=== PATIENT | female | born 1985 | race Two or more races ===

== ENCOUNTER 2024-08-20 09:46 | Inpatient (IN) | payer MEDICAID ==
[~2024-08-20] VITALS: Ht 160 cm; Wt 103.0 kg
[2024-08-20 10:07] VITALS: PULSE 73; RESP 18; O2SAT 99
[2024-08-20 10:18] LABS: Basophils # (auto) 0 10 ^3/uL (0-0.2); Basophils % (auto) 0.7 % (0.0-2.0); Eosinophils # (auto) 0.1 10 ^3/uL (0-0.8); Hematocrit 39.2 % (36.0-46.0); Hemoglobin 13.2 g/dL (12.2-16.2); Lymphocytes # (auto) 1.6 10 ^3/uL (0.4-5.4); Lymphocytes % (auto) 30.6 % (10.0-50.0); Mean Corpuscular Hemoglobin 28.4 pg (28.0-32.0); Mean Corpuscular Hgb Conc. 33.8 g/dL (32.0-36.0); Mean Corpuscular Volume 84.1 fL (80.0-100.0); Monocytes # (auto) 0.2 10 ^3/uL (0-1.3); Monocytes % (auto) 4.2 % (0.0-12.0); Neutrophils # (auto) 3.4 10 ^3/uL (1.6-8.6); Neutrophils % (auto) 63.5 % (37.0-80.0); Nucleated Red Blood Cells % 0.1 %; Platelet Count (auto) 275 10^3/uL (140-450); Red Blood Cells 4.66 10^6/uL (4.0-5.20); Red Cell Distribution Width 15.1 % (11.8-14.3); White Blood Cell 5.4 10^3/uL (4.4-10.8)
--- NOTE | 2024-08-20 10:24 | ED.PDOC ---
Altered Mental Status HPI Comments 39y F who presents to the ED via EMS for chief complaint of syncope. Per EMS, pt was standing in kitchen drinking water when she suddenly felt light headed and had unwitnessed syncopal episode. Pt states she does not remember losing consciousness but states she has been having pain to the back of the head and called EMS. EMS states pt has noted laceration to the posterior head and was complaining of headache and brought to the ED. Pt was alert and oriented upon EMS arrival with vitals in normal range and brought to the ED. Pt in the ED, states she is having neck pain, abdominal pain and headache. Pt is alert and oriented x4 and able to answer all questions. Pt denies any other symptoms at t his time. Chief Complaint: Syncope Time Seen by MD: 10:21 Reviewed Notes: Medications, Allergies Information Source: Patient, Emergency Med Personnel Mode of Arrival: EMS Brought in by: EMS Past Medical History PAST MEDICAL HISTORY: HTN Surgical History: Cholecystectomy PUBLICATIONS INSPECTOR History: Denies all PUBLICATIONS INSPECTOR Hx Family History Family History: Reviewed,noncontributory to illness Social History Smoker: Non-Smoker Alcohol: Denies ETOH Use Drugs: Denies Drug Use Lives In: Home Constitutional: denies: chills, diaphoresis, fatigue, fever, malaise, sweats, weakness, others EENTM: denies: blurred vision, double vision, ear bleeding, ear discharge, ear drainage, ear pain, ear ringing, eye pain, eye redness, hearing loss, mouth pain, mouth swelling, nasal discharge, nose bleeding, nose congestion, nose pain, photophobia, tearing, throat pain, throat swelling, voice changes, others Respiratory: denies: cough, hemoptysis, orthopnea, SOB at rest, shortness of breath, SOB with excertion, stridor, wheezing, others Cardiovascular: denies: chest pain, dizzy spells, diaphoresis, Dyspnea on exertion, edema, irregular heart beat, left arm pain, lightheadedness, palpitations, PND, syncope, others Gastrointestinal: reports: abdominal pain; denies: abdomen distended, blood streaked bowels, constipated, diarrhea, dysphagia, difficulty swallowing, hematemesis, melena, nausea, poor appetite, poor fluid intake, rectal bleeding, rectal pain, vomiting, others Genitourinary: denies: abnormal vagina bleeding, burning, dyspareunia, dysuria, flank pain, frequency, hematuria, incontinence, pain, , vagina discharge, urgency, others Neurological: reports: headache; denies: dizziness, fainting, left sided numbness, left sided weakness, numbness, paresthesia, pre-existing deficit, right sided numbness, right sided weakness, seizure, speech problems, tingling, tremors, weakness, others Musculoskeletal: reports: neck pain; denies: back pain, gout, joint pain, joint swelling, muscle pain, muscle stiffness, others Integumetry: denies: bruises, change in color, change in hair/nails, dryness, laceration, lesions, lumps, rash, wounds, others Allergic/Immunocompromised: denies: Difficulty Healing, Frequent Infections, Hives, Itching, others Hematologic/Lymphatic: denies: anemia, blood clots, easy bleeding, easy bruising, swollen glands, others Endocrine: denies: excessive hunger, excessive sweating, excessive thirst, excessive urination, flushing, intolerance to cold, intolerance to heat, unexplained weight gain, unexplained weight loss, others Psychiatric: denies: anxiety, bipolar disorder, depression, hopeless, panic disorder, schizophrenia, sleepless, suicidal, others All Other Systems: Reviewed and Negative Physical Exam General Appearance: Moderate Distress HEENT: Normal ENT Inspection, Pharynx Normal, TMs Normal Neck: Full Range of Motion, Non-Tender, Normal, Normal Inspection Respiratory: Chest Non-Tender, Lungs Clear, No Accessory Muscle Use, No Respiratory Distress, Normal Breath Sounds Cardiovascular: No Edema, No JVD, No Murmur, No Gallop, Normal Peripheral Pulses, Regular Rate/Rhythm Breast Exam: Deferred Gastrointestinal: No Organomegaly, Non Tender, No Pulsatile Mass, Normal Bowel Sounds, Soft Genitalia: Deferred Pelvic: Deferred Rectal: Deferred Extremities: No calf tenderness, Normal capillary refill, Normal inspection, Normal range of motion, Non-tender, No pedal edema Musculoskeletal : Apperance: Normal Neurologic: Alert, tool drawing checker II-XII nml as Tested, No Motor Deficits, Normal Affect, Normal Mood, No Sensory Deficits Cerebellar Function: Normal Reflexes: Normal Skin: Lacerations (Scalp) Peripheral Pulses: 3+ Radial (R), 3+ Radial (L) Lymphatic: No Adenopathy Was a procedure done? Was a procedure done?: No Differential Diagnosis (ALOC) Differential Diagnosis: Dehydration, Hypoglycemia, Encephalopathy, Sepsis, Hypoxemia, Closed Head Injury, SAH X-Ray, Labs, Meds, VS Vital Signs Date Time Temp Pulse Resp B/P (MAP) Pulse Ox O2 Delivery O2 Flow Rate FiO2 08/20/24 11:22 70 18 126/80 (95) 66 08/20/24 10:07 98.1 73 18 130/75 (93) 99 98.1 08/20/24 10:07 73 18 99 Room Air* 0 21 08/20/24 09:56 70 08/20/24 09:54 98.4 81 18 125/79 (94) 100 Lab Test 08/20/24 10:40 08/20/24 10:06 Range/Units Urine Color Pending Urine Clarity Pending Urine pH Pending Urine Specific [place] Pending Urine Protein Pending Urine Ketones Pending Urine Blood Pending Urine Nitrite Pending Urine Bilirubin Pending Urine Urobilinogen Pending Urine Leukocyte Esterase Pending Urine RBC Pending Urine WBC Pending Urine Squamous Epithelial Cells Pending Urine Bacteria Pending Urine Glucose Pending White Blood Count 5.4 4.4-10.8 10^3/uL Red Blood Count 4.66 4.0-5.20 10^6/uL Hemoglobin 13.2 12.2-16.2 g/dL Hematocrit 39.2 36.0-46.0 % Mean Corpuscular Volume 84.1 80.0-100.0 fL Mean Corpuscular Hemoglobin 28.4 28.0-32.0 pg Mean Corpuscular Hemoglobin Concent 33.8 32.0-36.0 g/dL Red Cell Distribution Width 15.1 H 11.8-14.3 % Platelet Count 275 140-450 10^3/uL Mean Platelet Volume 7.7 6.9-10.8 fL Neutrophils (%) (Auto) 63.5 37.0-80.0 % Lymphocytes (%) (Auto) 30.6 10.0-50.0 % Monocytes (%) (Auto) 4.2 0.0-12.0 % Eosinophils (%) (Auto) 1.0 0.0-7.0 % Basophils (%) (Auto) 0.7 0.0-2.0 % Neutrophils # (Auto) 3.4 1.6-8.6 10 ^3/uL Lymphocytes # (Auto) 1.6 0.4-5.4 10 ^3/uL Monocytes # (Auto) 0.2 0-1.3 10 ^3/uL Eosinophils # (Auto) 0.1 0-0.8 10 ^3/uL Basophils # (Auto) 0 0-0.2 10 ^3/uL Nucleated Red Blood Cells 0.1 % Sodium Level 143 136-145 mmol/L Potassium Level 3.7 3.5-5.1 mmol/L Chloride Level 112 H 98-107 mmol/L Carbon Dioxide Level 25 20-31 mmol/L Anion Gap 6 5-15 Blood Urea Nitrogen 6 L 9-23 mg/dL Creatinine 0.77 0.550-1.02 mg/dL Glomerular Filtration Rate Calc 99 >90 mL/min BUN/Creatinine Ratio 7.8 L 10.0-20.0 Serum Glucose 105 74-106 mg/dL Calcium Level 9.7 8.7-10.4 mg/dL Troponin I High Sensitivity < 3 L </=34 ng/L PROCEDURE(s): HWOCT - HEAD WITHOUT CONTRAST IMPRESSION: 1. No acute intracranial process. Patient alert. Status post fall. Has a laceration of the scalp. Vitals stable. Syncope. Unknown how the incident happened. Was found by family. She does not remember the event. WBC within normal limits. Hemoglobin within normal limits. CT of the head reviewed does not show any acute changes pain Sutured. Cardiac marker within normal limits. Reviewed her previous history. Explained to the patient treatment plan. Continue cardiac monitoring. Time of 1ST Reevaluation: 11:00 Reevaluation 1ST: Unchanged Patient Education/Counseling: Diagnosis, Treatment Family Education/Counseling: No Family Present Departure 1 Departure Time of Disposition: 10:55 Impression: Primary Impression: Head injury Qualified Codes: S09.90XA - Unspecified injury of head, initial encounter Additional Impression: Laceration Disposition: ADMITTED INPATIENT Admit to: Med Surg Condition: Guarded Critical Care Note Critical Care Time?: Yes (45 min-critical care time only) Stability Stability form required: No Heart Score Heart Score: Heart Score Response (Comments) Value History N/A 0 EKG N/A 0 Age N/A 0 Risk Factors N/A 0 Troponin N/A 0 Total 0 I personally scribed for ISAAK MURRY MD ([email or web address]) on 08/20/24 at 10:24. Electronically submitted by Jared Albert ([email or web address]). I personally scribed for ISAAK MURRY MD ([email or web address]) on 08/20/24 at 12:21. Electronically submitted by Jared Albert ([email or web address]). ISAAK MURRY MD Aug 20, 2024 10:24
[2024-08-20 10:30] LABS: Chloride 112 mmol/L (98-107); Potassium 3.7 mmol/L (3.5-5.1); Sodium 143 mmol/L (136-145)
[2024-08-20 10:31] LABS: Anion Gap 6 (5-15); Calcium 9.7 mg/dL (8.7-10.4); Carbon Dioxide 25 mmol/L (20-31)
[2024-08-20 10:36] LABS: BUN/Creatinine Ratio 7.8 (10.0-20.0); Blood Urea Nitrogen 6 mg/dL (9-23); Glucose 105 mg/dL (74-106)
--- NOTE | 2024-08-20 10:51 | DVH ---
EXAM: CT HEAD WITHOUT CONTRAST HISTORY: syncope COMPARISON: None TECHNIQUE: Axial images of the head were obtained and reformatted in coronal and sagittal planes. All CT scans at this medical facility are performed using dose modulation techniques as appropriate t o a performed exam including the following: Automated exposure control was utilized; adjustment of th e MA and/or KV according to patient size; and use of iterative reconstruction technique. CT Dose: CTDI volume is 54.52 mGy. Dose-length product is 874.08 mGy*cm FINDINGS: There is no evidence of acute intracranial hemorrhage, mass, mass effect midline shift. There is no h ydrocephalus or extra-axial fluid collection. Ervin-white matter differentiation is maintained.. The visualized paranasal sinuses and mastoid air cells are clear. The calvarium is intact. IMPRESSION: 1. No acute intracranial process. HS:Y
[2024-08-20 12:25] LABS: Urine Bacteria FEW /hpf (None Seen); Urine Blood Negative /uL (Negative); Urine Clarity Clear (Clear); Urine Color Colorless (Yellow); Urine Protein, UAD Negative (Negative); Urine Specific Gravity 1.003 (1.001-1.035); Urine Urobilinogen Normal (Negative); Urine WBC 1 /hpf (0 - 5); Urine pH 6.5 (5.0-9.0)
[2024-08-20] MEDS ORDERED: ONDANSETRON HCL 4 MG/2 ML VIAL IV PRN (15:15)
[2024-08-20] MEDS ORDERED: DESM0.1T13 PO (15:23)
[2024-08-20] MEDS ORDERED: NITR100C6 PO (15:23)
[2024-08-20] MEDS ORDERED: ENAL1TAB47 PO (15:27)
--- NOTE | 2024-08-20 15:41 | DVHHP2 ---
History of Present Illness Reason for Visit: Syncope History of Present Illness 39-year-old female presented to the ED via EMS with chief complaint of syncope. Per EMS patient was standing in the kitchen drinking water when she felt lightheaded and had unwitnessed syncopal episode. Patient states she does not remember losing consciousness. EMS stated patient noted laceration to the posterior head and was complaining of headache and brought to the ED. patient was alert and oriented upon EMS arrival and vitals were within normal limits. When patient was in the ED she complaint of neck pain, abdominal pain and headache. Patient does note she was recently diagnosed with a UTI and did not start taking her medication yet because it was not available at the pharmacy. Patient is alert and oriented x4 and able to answer all questions, patient has no deficits. Patient denies chest pain, dizziness, diaphoresis, shortness of breath, no nausea, vomiting, fever, or chills endorsed by the patient. Patient was admitted for further evaluation medical management. Past Medical History Hypertension, diabetes insipidus Past Surgical History Cholecystectomy Family History Reviewed noncontributory to the management of this case Smoke: No ALCOHOL: none Drugs: None Lives: with Family Review of Systems Constitutional: No: Fever, Chills, Sweats, Weakness, Malaise, Other Eyes: No: Pain, Vision change, Conjunctivae inflammation, Eyelid inflammation, Other, Redness ENT: No: Ear pain, Ear discharge, Nose pain, Nose discharge, Nose congestion, Mouth pain, Mouth swelling, Throat pain, Throat swelling, Other Respiratory: No: Cough, Dry, Shortness of breath, SOB with excertion, Wheezing, Hemoptysis, Pleuritic Pain, Sputum, Wheezing, Other Cardiovascular: No: Chest Pain, Palpitations, Orthopnea, Paroxysmal Noc. Dyspnea, Edema, Lt Headedness, Other Gastrointestinal: No: Nausea, Vomiting, Abdominal Pain, Diarrhea, Constipation, Melena, Hematochezia, Other Genitourinary: Dysuria, Frequency; No Incontinence, No Hematuria, No Retention, No Other Musculoskeletal: neck pain; No: other, shoulder pain, arm pain, back pain, hand pain, leg pain, foot pain Skin: Other (Laceration to posterior head); No: Rash, Lesions, Jaundice, Bruising Neurological: No: Weakness, Numbness, Incoordination, Change in speech, Confusion, Seizures, Other Allergies: Coded Allergies: NO KNOWN ALLERGIES (Unverified , 08/20/24) Verified Medications Current Medications Medications Dose Ordered Sig/Garfield Route Start Time Stop Time Status Last Admin Dose Admin Acetaminophen 650 mg Q6HP PRN PO 08/20/24 15:15 UNV Acetaminophen/ Hydrocodone Bitart 1 tab Q6HP PRN PO 08/20/24 15:15 UNV Ondansetron HCl 4 mg Q4HP PRN IV 08/20/24 15:15 UNV Nitrofurantoin Macrocrystals 100 mg Q12HR PO 08/20/24 22:00 UNV Patient Own Medication 0.1 mg QID PO 08/20/24 18:00 UNV Enalapril Maleate 10 mg DAILY PO 08/21/24 10:00 UNV Exam Vital Signs Vital Signs Date Time Temp Pulse Resp B/P (MAP) Pulse Ox O2 Delivery O2 Flow Rate FiO2 08/20/24 14:20 88 18 128/85 (99) 98 08/20/24 10:07 98.1 98.1 08/20/24 10:07 Room Air* 0 21 General Appearance: Alert, Oriented X3, Cooperative, No acute distress HEENT: Atraumatic, PERRLA, EOMI, Mucous membr. moist/pink Respiratory: Clear to auscultation, Normal air movement Cardiovascular: Regular rate, Normal S1, Normal S2, No murmurs Abdominal: Normal bowel sounds, Soft, No tenderness, No hepatospenomegaly, No masses Extremities: No clubbing, No cyanosis, No edema, Normal pulses, No tenderness/swelling Skin: No rashes, No breakdown, No significant lesion Neuro: Normal gait, Normal speech, Strength at 5/5 X4 ext, Normal tone, Sensation intact, Cranial nerves 3-12 NL, Reflexes 2+ Psych/Mental Status: Mental status NL, Mood NL Labs/Xrays Labs, imaging and ED notes reviewed Labs Test 08/20/24 10:40 08/20/24 10:06 Range/Units Urine Color Colorless Yellow Urine Clarity Clear Clear Urine pH 6.5 5.0-9.0 Urine Specific [place] 1.003 1.001-1.035 Urine Protein Negative Negative Urine Ketones Negative Negative Urine Blood Negative Negative /uL Urine Nitrite Negative Negative Urine Bilirubin Negative Negative Urine Urobilinogen Normal Negative mg/dL Urine Leukocyte Esterase Negative Negative /uL Urine RBC 1 0 - 4 /hpf Urine WBC 1 0 - 5 /hpf Urine Squamous Epithelial Cells Few <5 /hpf Urine Bacteria Few H None Seen /hpf Urine Glucose Normal Normal mg/dL White Blood Count 5.4 4.4-10.8 10^3/uL Red Blood Count 4.66 4.0-5.20 10^6/uL Hemoglobin 13.2 12.2-16.2 g/dL Hematocrit 39.2 36.0-46.0 % Mean Corpuscular Volume 84.1 80.0-100.0 fL Mean Corpuscular Hemoglobin 28.4 28.0-32.0 pg Mean Corpuscular Hemoglobin Concent 33.8 32.0-36.0 g/dL Red Cell Distribution Width 15.1 H 11.8-14.3 % Platelet Count 275 140-450 10^3/uL Mean Platelet Volume 7.7 6.9-10.8 fL Neutrophils (%) (Auto) 63.5 37.0-80.0 % Lymphocytes (%) (Auto) 30.6 10.0-50.0 % Monocytes (%) (Auto) 4.2 0.0-12.0 % Eosinophils (%) (Auto) 1.0 0.0-7.0 % Basophils (%) (Auto) 0.7 0.0-2.0 % Neutrophils # (Auto) 3.4 1.6-8.6 10 ^3/uL Lymphocytes # (Auto) 1.6 0.4-5.4 10 ^3/uL Monocytes # (Auto) 0.2 0-1.3 10 ^3/uL Eosinophils # (Auto) 0.1 0-0.8 10 ^3/uL Basophils # (Auto) 0 0-0.2 10 ^3/uL Nucleated Red Blood Cells 0.1 % Sodium Level 143 136-145 mmol/L Potassium Level 3.7 3.5-5.1 mmol/L Chloride Level 112 H 98-107 mmol/L Carbon Dioxide Level 25 20-31 mmol/L Anion Gap 6 5-15 Blood Urea Nitrogen 6 L 9-23 mg/dL Creatinine 0.77 0.550-1.02 mg/dL Glomerular Filtration Rate Calc 99 >90 mL/min BUN/Creatinine Ratio 7.8 L 10.0-20.0 Serum Glucose 105 74-106 mg/dL Calcium Level 9.7 8.7-10.4 mg/dL Troponin I High Sensitivity < 3 L </=34 ng/L Assessment/Plan Assessment/Plan Syncope, possible medication side effect secondary to desmopressin and dehydration? Admit to medical/surgical Fall precautions Encourage hydration Chronic hypertension Continue home medication UTI Continue home antibiotics Head laceration CT head no acute findings Keep site clean and dry FEN/PPX GI and VTE prophylaxis not indicated Cardiac diet Encourage fluid intake Plan discussed with: Patient My Orders Orders - JANETH MANRIQUEZ Procedure Category Date Status Time Admit ADMIT 08/20/24 Transmitted 15:15 Code Status CODE 08/20/24 Transmitted 15:15 Vital Signs [facility] 08/20/24 In Process 15:15 Review Orders With [facility] 08/20/24 In Process Adm. 15:15 Bedside Commode [facility] 08/20/24 In Process 15:15 Acetaminophen Tablet [facility] 08/20/24 Logged (Tylenol Tablet) 15:15 Notify Md Of Changes [facility] 08/20/24 In Process From Base 15:15 Advance Directive [facility] 08/20/24 In Process 15:15 Patient Condition ORDERS 08/20/24 Transmitted 15:15 Allergies [facility] 08/20/24 In Process 15:15 Hydrocodone-Acet [facility] 08/20/24 Logged 5/325mg Tab ([place] 15:15 Ondansetron Hcl [facility] 08/20/24 Logged (Zofran) 15:15 Cardiac DIET 08/20/24 Transmitted Diet-2gna,Lofat,Lochol [facility] 08/20/24 In Process Clarification: 15:21 Nitrofurantoin [facility] 08/20/24 Logged Capsule (Macrobid) 22:00 (Nf) Desmopressin [facility] 08/20/24 Logged Acetate 18:00 Enalapril Tablet [facility] 08/21/24 Logged (Vasotec Tablet) 10:00 Date of Service: Aug 20, 2024 Billing Provider: JANETH MANRIQUEZ Common Visit Codes: [id number] INP/OBS CARE (HIGH) JANETH MANRIQUEZ Aug 20, 2024 15:41
[2024-08-20] MEDS: DESMOPRESSIN ACETATE 0.1 MG PO SCH (18:00)
[2024-08-20 21:00] VITALS: BP 128/82; PULSE 73; RESP 19; TEMP 98.5
[2024-08-20 22:44] VITALS: PULSE 65; RESP 18
[2024-08-20 22:45] VITALS: BP 129/77; PULSE 65; RESP 18; TEMP 98.2; O2SAT 99
[2024-08-20 23:01] VITALS: BP 129/77; PULSE 65; RESP 18; TEMP 98.2; O2SAT 99
[2024-08-20] MEDS: NITROFURANTOIN 100 mg CAP PO SCH (23:31)
[2024-08-20] MEDS: HYDROcodone-ACET 5/325MG TAB PO PRN (23:39)
[2024-08-20] MEDS ORDERED: TRAZ-228 PO (23:40)
[2024-08-20] MEDS ORDERED: SERT25TA28 PO (23:40)
[2024-08-21] VITALS (8 sets, daily range): BP systolic 114–139; BP diastolic 65–84; PULSE 60–78; RESP 17–20; TEMP 98–98.6; O2SAT 96–97
[2024-08-21] MEDS: ENALAPRIL MALEATE 10 MG TAB PO SCH (08:07)
--- NOTE | 2024-08-21 09:52 | DVHPN2 ---
Subjective No recurrence of the syncope; patient's daughter translated from [place] Reviewed: Care Plan, H&P, Labs, Medications, Previous Orders, Radiology Changes from previous H/P or p: Changes Objective Vitals Vital Signs Date Time Temp Pulse Resp B/P (MAP) Pulse Ox O2 Delivery O2 Flow Rate FiO2 08/21/24 08:07 139/71 08/21/24 05:00 98.4 62 18 97 98.4 08/20/24 22:44 Room Air* 0 21 Intake/Output Intake and Output 08/21/24 07:00 Intake Total 240 ml Balance 240 ml Intake Oral 240 ml # Voids 3 General Appearance: Alert, Oriented X3, Cooperative, No acute distress HEENT: Other (Scalp hematoma with abrasion but no active bleeding) Lungs: Clear to auscultation, Normal air movement Cardiovascular: Regular rate, Normal S1, Normal S2, No murmurs Abdomen: Normal bowel sounds, Soft, No tenderness Extremities: No edema Neuro: Normal gait, Normal speech, Strength at 5/5 X4 ext, Normal tone, S ensation intact, Cranial nerves 3-12 NL, Reflexes 2+ Psych/Mental Status: Mental status NL, Mood NL Medications Current Medications Medications Dose Ordered Sig/[place] Route Start Time Stop Time Status Last Admin Dose Admin Acetaminophen 650 mg Q6HP PRN PO 08/20/24 15:15 Acetaminophen/ Hydrocodone Bitart 1 tab Q6HP PRN PO 08/20/24 15:15 08/20/24 23:39 1 TAB Ondansetron HCl 4 mg Q4HP PRN IV 08/20/24 15:15 Nitrofurantoin Macrocrystals 100 mg Q12HR PO 08/20/24 22:00 08/21/24 08:07 100 MG Patient Own Medication 0.1 mg QID PO 08/20/24 18:00 Enalapril Maleate 10 mg DAILY PO 08/21/24 10:00 08/21/24 08:07 10 MG Laboratory Results Laboratory Tests 08/20/24 10:06 Chemistry Test 08/20/24 10:06 Calcium Level 9.7 mg/dL (8.7-10.4) Urinalysis Test 08/20/24 10:40 Urine Color Colorless (Yellow) Urine Clarity Clear (Clear) Urine pH 6.5 (5.0-9.0) Urine Specific [place] 1.003 (1.001-1.035) Urine Protein Negative (Negative) Urine Ketones Negative (Negative) Urine Blood Negative /uL (Negative) Urine Nitrite Negative (Negative) Urine Bilirubin Negative (Negative) Urine Urobilinogen Normal mg/dL (Negative) Urine Leukocyte Esterase Negative /uL (Negative) Urine RBC 1 /hpf (0 - 4) Urine WBC 1 /hpf (0 - 5) Urine Squamous Epithelial Cells Few /hpf (<5) Urine Bacteria Few /hpf (None Seen) H Urine Glucose Normal mg/dL (Normal) Labs and/or images reviewed: Labs reviewed by me, Image(s) reviewed by me Assessment/Plan Assessment/Plan A 39-year-old female patient; with past medical history of diabetes insipidus, pituitary lesion/tumor, and essential hypertension; who presented to the emergency department after syncope and collapse that caused a fall and a head injury with scalp hematoma/abrasion. #Syncope and collapse in the setting of pituitary lesion/tumor #Fall due to syncope and collapse #Head injury with scalp hematoma/abrasion Reviewed head CT; ordered brain MRI with and without contrast for pituitary gland evaluation Ordered echocardiogram then reviewed the results: Mildly elevated right ventricular systolic pressure 38 mm of mercury is the only abnormality mentioned; ordered D-dimer Ordered duplex carotid ultrasound Reordered orthostatic vital signs Telemetry Fall precautions Wound care is following Continue monitoring #Diabetes insipidus Continue home desmopressin Continue monitoring electrolytes and renal function ##Essential hypertension Continue home enalapril Continue monitoring blood pressure and adjust antihypertensive medication accordingly #Suspected UTI Continue nitrofurantoin #Morbid obesity Counseled the patient importance of adopting healthy lifestyle with diet and exercise in order to lose weight Goals of care discussed for 20 minutes; full code Late Entry This medical document was created using an electronic medical record system with computerized dictation system. Although this document has been carefully reviewed, there might still be some phonetic and typographical errors. These areas are purely typographical due to imperfections of the software programs, and do not reflect any compromise in the patient's medical care. Plan discussed with: Patient, Daughter, Other Date of Service: Aug 21, 2024 Billing Provider: JAKI HORNER MD Common Visit Codes: 23513-[id number] INP/OBS CARE(HIGH) Secondary Visit Codes: 71996-[id number] CARE PLAN 30 MINUTES (20 minutes) JAKI HORNER MD Aug 21, 2024 09:52
[2024-08-21] MEDS: GADOTERATE MEG 10 MMOL/20ml INJ (0.5MMOL/ml) IV ONE (15:18)
--- NOTE | 2024-08-21 15:43 | DVHSR ---
APPROVED REPORT EXAM: Two-dimensional and M-mode echocardiogram with Doppler and color Doppler. Blood Pressure: 139/84 mmHg INDICATION Syncope RISK FACTORS Height: 63, Weight: 235 DIMENSIONS LVDd4.8 (3.8-5.7cm)LA (2D)4.0 (1.9-4.0cm)Aortic Root3.5 (2.0-3.7cm) LVDs3.1 (2.5-4.0cm)LA (MM) (1.9-4.0cm)Aortic Cusp Exc1.7 (1.5-2.0cm) EF (%) 65.0 (55-70%)Rt. Atrium3.6 (1.9-4.0cm)Asc. Aorta cm IVSd1.0 (0.7-1.1cm)RV (D) (1.8-2.4cm) PWd1.0 (0.7-1.1cm) Mitral Valve MitralMitral Stenosis E wave0.79m/sMV Mean GR.mmHg A wave0.70m/sMV Peak GR.mmHg E/A ratio1.12D MVAcm2 DECEL [id number] 1/2 [id number] IVRTmsDop MVA2.36cm2 Aortic Valve Aortic ValveAortic Stenosis V11.16m/Joe Mean GR.5mmHg V21.58m/Joe Peak GR.10mmHg LVOT Diameter2.0 (1.8-2.4cm)Doppler AVA2.31cm2 Pulmonic Valve V20.88m/s Tricuspid Valve TR Velocity2.33m/s [id number] Conclusion Normal left ventricular size and dimension. Normal left ventricular systolic function. With estimat ed ejection fraction 55%. Normal diastolic function . Normal right ventricular size and dimension. Normal right ventricular systolic function. Mildly melvin vated right ventricular systolic [id number] mm of mercury Normal biatrial size and dimension. Normal aortic valve structure and function. Normal mitral valve structure and function. Normal tricuspid valve structure and function. The pulmonary valve is grossly normal. No pericardial effusion.
[2024-08-21] MEDS ORDERED: [UNRECOGNIZED DRUG - CODE] PO (16:12)
[2024-08-21] MEDS ORDERED: HYDR-4924 PO (16:12)
[2024-08-21] MEDS ORDERED: CITA-77 PO (16:12)
[2024-08-21] MEDS ORDERED: ERGO1CAP23 PO (16:12)
[2024-08-21] MEDS: ACETAMINOPHEN 325 MG TAB PO PRN (16:19)
--- NOTE | 2024-08-21 16:24 | DVH ---
MRI BRAIN WITH CONTRAST CLINICAL HISTORY: Syncope with diabetes insipidus; pituitary tumor. Thank You TECHNIQUE: Multiplanar multisequence images of the brain and pituitary gland were obtained prior to and followin g intravenous administration of contrast. 10/10 cc of gadavist contrast from a prefilled syringe was administered intravenously. Comparison: CT HEAD WITHOUT CONTRAST on DOS: 08/20/24 FINDINGS: The pituitary gland is normal in size and demonstrates appropriate signal. There is no discrete pitui tary lesion. There is no other sellar or suprasellar lesion. The pituitary infundibulum is midline. The optic chiasm appears unremarkable without extrinsic mass effect. There is no restricted diffusion. There are few nonspecific scattered punctate hyperintense T2/FLAIR foci in the bilateral frontal lobe white matter. There is no pathologic enhancement. There is no evid ence of hemorrhage, mass, mass effect or midline shift. There is no hydrocephalus or extra-axial flui d collection. The visualized intracranial vasculature demonstrates appropriate flow-voids. The midlin e structures appear unremarkable. The craniocervical junction is within normal limits. The calvarium demonstrates normal marrow signal. The paranasal sinuses and mastoid air cells are clear. IMPRESSION: 1. Unremarkable MR appearance of the pituitary gland. 2. Few nonspecific scattered punctate hyperintense T2 foci in the bilateral frontal lobe white matter . These can be seen with migraine vasculopathy. Clinical correlation is recommended. HS:Y
--- NOTE | 2024-08-21 18:36 | ECG ---
[facility] Test Date: 2024-08-20 Test Time: 09:56:34 Pat Name: LAUREN FOLEY Department: ED Room: 0289 Gender: F Senior Marketing Manager: FELICIA : 1985 Requested By: ISAAK MURRY Order Number: [id number] Reading MD: Measurements Intervals [place] Rate: 70 P: 24 ME: 161 QRS: 41 QRSD: 97 T: 29 QT: 396 QTc: 428 Interpretive Statements Sinus rhythm Please click the below link to view image of tracing.
[2024-08-22] VITALS (9 sets, daily range): BP systolic 112–126; BP diastolic 69–76; PULSE 61–85; RESP 16–20; TEMP 98.2–98.9; O2SAT 96–100
[2024-08-22 07:13] LABS: Basophils # (auto) 0 10 ^3/uL (0-0.2); Basophils % (auto) 0.7 % (0.0-2.0); Eosinophils # (auto) 0.1 10 ^3/uL (0-0.8); Eosinophils % (auto) 1.2 % (0.0-7.0); Hematocrit 37.9 % (36.0-46.0); Hemoglobin 12.9 g/dL (12.2-16.2); Lymphocytes # (auto) 2.1 10 ^3/uL (0.4-5.4); Mean Corpuscular Hemoglobin 29.1 pg (28.0-32.0); Mean Corpuscular Hgb Conc. 34.1 g/dL (32.0-36.0); Mean Corpuscular Volume 85.4 fL (80.0-100.0); Monocytes # (auto) 0.4 10 ^3/uL (0-1.3); Monocytes % (auto) 5.6 % (0.0-12.0); Neutrophils # (auto) 3.8 10 ^3/uL (1.6-8.6); Neutrophils % (auto) 59.5 % (37.0-80.0); Nucleated Red Blood Cells % 0.2 %; Platelet Count (auto) 264 10^3/uL (140-450); Red Blood Cells 4.44 10^6/uL (4.0-5.20); White Blood Cell 6.3 10^3/uL (4.4-10.8)
[2024-08-22 07:26] LABS: Alanine Aminotransferase 18 U/L (7-40); Alkaline Phosphatase 61 U/L (46-116); Anion Gap 7 (5-15); Aspartate Aminotransferase < 8 U/L (13-40); BUN/Creatinine Ratio 10.7 (10.0-20.0); Blood Urea Nitrogen 8 mg/dL (9-23); Calcium 9.6 mg/dL (8.7-10.4); Carbon Dioxide 26 mmol/L (20-31); Chloride 110 mmol/L (98-107); Glucose 94 mg/dL (74-106); Potassium 3.9 mmol/L (3.5-5.1); Sodium 143 mmol/L (136-145)
[2024-08-22 07:27] LABS: Albumin 4.1 g/dL (3.2-4.8); Bilirubin, Total 1.1 mg/dL (0.2-1.0); Total Protein 6.7 g/dL (5.7-8.2)
--- NOTE | 2024-08-22 10:52 | DVHPN2 ---
Reviewed: Care Plan, H&P, Labs, Medications, Previous Orders, Radiology Changes from previous H/P or p: No Changes Objective Vitals Vital Signs Date Time Temp Pulse Resp B/P (MAP) Pulse Ox O2 Delivery O2 Flow Rate FiO2 08/22/24 09:17 117/74 08/22/24 08:51 98.2 78 18 99 98.2 08/22/24 08:00 Room Air* 0 21 Intake/Output Intake and Output 08/22/24 07:00 Intake Total 1340 ml Output Total 650 ml Balance 690 ml Intake Oral 1340 ml Output Urine Total 650 ml # Voids 2 # Bowel Movements 1 General Appearance: Alert, Oriented X3, Cooperative, No acute distress HEENT: Other (Scalp hematoma with abrasion but no active bleeding) Lungs: Clear to auscultation, Normal air movement Cardiovascular: Regular rate, Normal S1, Normal S2, No murmurs Abdomen: Normal bowel sounds, Soft, No tenderness Extremities: No edema Neuro: Normal gait, Normal speech, Strength at 5/5 X4 ext, Normal tone, S ensation intact, Cranial nerves 3-12 NL, Reflexes 2+ Psych/Mental Status: Mental status NL, Mood NL Medications Current Medications Medications Dose Ordered Sig/[place] Route Start Time Stop Time Status Last Admin Dose Admin Acetaminophen 650 mg Q6HP PRN PO 08/20/24 15:15 08/21/24 16:19 650 MG Acetaminophen/ Hydrocodone Bitart 1 tab Q6HP PRN PO 08/20/24 15:15 08/22/24 09:16 1 TAB Ondansetron HCl 4 mg Q4HP PRN IV 08/20/24 15:15 Nitrofurantoin Macrocrystals 100 mg Q12HR PO 08/20/24 22:00 08/22/24 09:16 100 MG Patient Own Medication 0.1 mg QID PO 08/20/24 18:00 08/22/24 05:55 0.1 MG Enalapril Maleate 10 mg DAILY PO 08/21/24 10:00 08/22/24 09:17 10 MG Laboratory Results Laboratory Tests 08/22/24 05:49 Chemistry Test 08/22/24 05:49 Albumin 4.1 g/dL (3.2-4.8) Calcium Level 9.6 mg/dL (8.7-10.4) Total Protein 6.7 g/dL (5.7-8.2) Coagulation Test 08/22/24 08:40 D-Dimer, Quantitative 0.47 mg/L FEU (0.0-0.49) LFT Test 08/22/24 05:49 Alanine Aminotransferase (ALT) 18 U/L (7-40) Alkaline Phosphatase 61 U/L (46-116) Aspartate Amino Transferase (AST) < 8 U/L (13-40) L Total Bilirubin 1.1 mg/dL (0.2-1.0) H Urinalysis Test 08/20/24 10:40 Urine Color Colorless (Yellow) Urine Clarity Clear (Clear) Urine pH 6.5 (5.0-9.0) Urine Specific [place] 1.003 (1.001-1.035) Urine Protein Negative (Negative) Urine Ketones Negative (Negative) Urine Blood Negative /uL (Negative) Urine Nitrite Negative (Negative) Urine Bilirubin Negative (Negative) Urine Urobilinogen Normal mg/dL (Negative) Urine Leukocyte Esterase Negative /uL (Negative) Urine RBC 1 /hpf (0 - 4) Urine WBC 1 /hpf (0 - 5) Urine Squamous Epithelial Cells Few /hpf (<5) Urine Bacteria Few /hpf (None Seen) H Urine Glucose Normal mg/dL (Normal) Labs and/or images reviewed: Labs reviewed by me, Image(s) reviewed by me Assessment/Plan Assessment/Plan Syncope and collapse in the setting of pituitary lesion/tumor Fall due to syncope and collapse Head injury with scalp hematoma/abrasion 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
--- NOTE | 2024-08-22 12:20 | DVH ---
Carotid Duplex Date: 08/22/2024 10:54 AM Clinical History: Syncope and collapse Comparison: None Technique: Duplex Doppler evaluation of the extracranial carotid and vertebral arteries including color Doppler and spectral/pulsed waveform analysis was performed. Findings: RIGHT SIDE: The peak systolic velocities are 74 cm/s in the distal CCA and 84 cm/s in the proximal ICA.The ICA/CC A ratio is less than 2. The external carotid artery is patent with peak systolic velocity of 66 cm/s proximally. There is appropriate antegrade flow in the right vertebral artery. LEFT SIDE: The peak systolic velocities are 84 cm/s in the distal CCA and 75 cm/s in the proximal ICA.. The ICA /CCA ratio is less than 1. The external carotid artery is patent with peak systolic velocity of 59 cm/s proximally. There is appropriate antegrade flow in the left vertebral artery. IMPRESSION: 1. No hemodynamically significant stenosis noted in the right carotid system. 2. No hemodynamically significant stenosis noted in the left carotid system. 3. Reference: Radiology 2003; 229:[id number] HS:Y
[2024-08-23 01:00] VITALS: BP 126/74; PULSE 78; RESP 16; TEMP 98; O2SAT 96
[2024-08-23 05:00] VITALS: BP 126/72; PULSE 70; RESP 20; TEMP 98.2; O2SAT 94
[2024-08-23 08:00] VITALS: PULSE 69; RESP 18
[2024-08-23 09:02] VITALS: BP 119/73; PULSE 67; RESP 16; TEMP 97.7; O2SAT 95
--- NOTE | 2024-08-23 12:35 | DVHPN2 ---
Reviewed: Care Plan, H&P, Labs, Medications, Previous Orders, Radiology Changes from previous H/P or p: No Changes Objective Vitals Vital Signs Date Time Temp Pulse Resp B/P (MAP) Pulse Ox O2 Delivery O2 Flow Rate FiO2 08/23/24 11:55 110/72 08/23/24 09:02 97.7 67 16 95 97.7 08/23/24 08:00 Room Air* 0 21 Intake/Output Intake and Output 08/23/24 07:00 Intake Total 1400 ml Output Total 1200 ml Balance 200 ml Intake Oral 1400 ml Output Urine Total 1200 ml # Voids 1 General Appearance: Alert, Oriented X3, Cooperative, No acute distress HEENT: Other (Scalp hematoma with abrasion but no active bleeding) Lungs: Clear to auscultation, Normal air movement Cardiovascular: Regular rate, Normal S1, Normal S2, No murmurs Abdomen: Normal bowel sounds, Soft, No tenderness Extremities: No edema Neuro: Normal gait, Normal speech, Strength at 5/5 X4 ext, Normal tone, S ensation intact, Cranial nerves 3-12 NL, Reflexes 2+ Psych/Mental Status: Mental status NL, Mood NL Medications Current Medications Medications Dose Ordered Sig/[place] Route Start Time Stop Time Status Last Admin Dose Admin Acetaminophen 650 mg Q6HP PRN PO 08/20/24 15:15 08/23/24 09:00 650 MG Acetaminophen/ Hydrocodone Bitart 1 tab Q6HP PRN PO 08/20/24 15:15 08/22/24 22:06 1 TAB Ondansetron HCl 4 mg Q4HP PRN IV 08/20/24 15:15 Nitrofurantoin Macrocrystals 100 mg Q12HR PO 08/20/24 22:00 08/23/24 09:20 100 MG Patient Own Medication 0.1 mg QID PO 08/20/24 18:00 08/23/24 11:55 0.1 MG Enalapril Maleate 10 mg DAILY PO 08/21/24 10:00 08/23/24 11:55 10 MG Laboratory Results Laboratory Tests 08/22/24 05:49 Urinalysis Test 08/20/24 10:40 Urine Color Colorless (Yellow) Urine Clarity Clear (Clear) Urine pH 6.5 (5.0-9.0) Urine Specific [place] 1.003 (1.001-1.035) Urine Protein Negative (Negative) Urine Ketones Negative (Negative) Urine Blood Negative /uL (Negative) Urine Nitrite Negative (Negative) Urine Bilirubin Negative (Negative) Urine Urobilinogen Normal mg/dL (Negative) Urine Leukocyte Esterase Negative /uL (Negative) Urine RBC 1 /hpf (0 - 4) Urine WBC 1 /hpf (0 - 5) Urine Squamous Epithelial Cells Few /hpf (<5) Urine Bacteria Few /hpf (None Seen) H Urine Glucose Normal mg/dL (Normal) Labs and/or images reviewed: Labs reviewed by me, Image(s) reviewed by me Assessment/Plan Assessment/Plan Syncope and collapse in the setting of pituitary lesion/tumor Fall due to syncope and collapse Head injury with scalp hematoma/abrasion 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
--- NOTE | 2024-08-23 12:47 | DVHDS2 ---
Discharge Summary Date of Admission Aug 20, 2024 at 15:15 Date of Discharge: Aug 23, 2024 Admitting Diagnosis Syncope Wounds: None Labs/Diagnostic Data: Laboratory Results Test 08/22/24 08:40 08/22/24 05:49 08/21/24 11:18 08/20/24 10:40 D-Dimer, Quantitative 0.47 mg/L FEU (0.0-0.49) White Blood Count 6.3 10^3/uL (4.4-10.8) Red Blood Count 4.44 10^6/uL (4.0-5.20) Hemoglobin 12.9 g/dL (12.2-16.2) Hematocrit 37.9 % (36.0-46.0) Mean Corpuscular Volume 85.4 fL (80.0-100.0) Mean Corpuscular Hemoglobin 29.1 pg (28.0-32.0) Mean Corpuscular Hemoglobin Concent 34.1 g/dL (32.0-36.0) Red Cell Distribution Width 15.0 % (11.8-14.3) Platelet Count 264 10^3/uL (140-450) Mean Platelet Volume 8.1 fL (6.9-10.8) Neutrophils (%) (Auto) 59.5 % (37.0-80.0) Lymphocytes (%) (Auto) 33.0 % (10.0-50.0) Monocytes (%) (Auto) 5.6 % (0.0-12.0) Eosinophils (%) (Auto) 1.2 % (0.0-7.0) Basophils (%) (Auto) 0.7 % (0.0-2.0) Neutrophils # (Auto) 3.8 10 ^3/uL (1.6-8.6) Lymphocytes # (Auto) 2.1 10 ^3/uL (0.4-5.4) Monocytes # (Auto) 0.4 10 ^3/uL (0-1.3) Eosinophils # (Auto) 0.1 10 ^3/uL (0-0.8) Basophils # (Auto) 0 10 ^3/uL (0-0.2) Nucleated Red Blood Cells 0.2 % Sodium Level 143 mmol/L (136-145) Potassium Level 3.9 mmol/L (3.5-5.1) Chloride Level 110 mmol/L (98-107) Carbon Dioxide Level 26 mmol/L (20-31) Anion Gap 7 (5-15) Blood Urea Nitrogen 8 mg/dL (9-23) Creatinine 0.75 mg/dL (0.550-1.02) Glomerular Filtration Rate Calc 103 mL/min (>90) BUN/Creatinine Ratio 10.7 (10.0-20.0) Serum Glucose 94 mg/dL (74-106) Calcium Level 9.6 mg/dL (8.7-10.4) Total Bilirubin 1.1 mg/dL (0.2-1.0) Aspartate Amino Transferase (AST) < 8 U/L (13-40) Alanine Aminotransferase (ALT) 18 U/L (7-40) Alkaline Phosphatase 61 U/L (46-116) Total Protein 6.7 g/dL (5.7-8.2) Albumin 4.1 g/dL (3.2-4.8) POC Glucose 104 mg/dl (70-106) Urine Color Colorless (Yellow) Urine Clarity Clear (Clear) Urine pH 6.5 (5.0-9.0) Urine Specific [place] 1.003 (1.001-1.035) Urine Protein Negative (Negative) Urine Ketones Negative (Negative) Urine Blood Negative /uL (Negative) Urine Nitrite Negative (Negative) Urine Bilirubin Negative (Negative) Urine Urobilinogen Normal mg/dL (Negative) Urine Leukocyte Esterase Negative /uL (Negative) Urine RBC 1 /hpf (0 - 4) Urine WBC 1 /hpf (0 - 5) Urine Squamous Epithelial Cells Few /hpf (<5) Urine Bacteria Few /hpf (None Seen) Urine Glucose Normal mg/dL (Normal) Test 08/20/24 10:06 Troponin I High Sensitivity < 3 ng/L (</=34) Other Laboratory Tests 08/22/24 05:49 Brief Hx & Hospital Course: 39 old female with a history of diabetes insipidus on desmopressin diagnosed three years ago at [facility]. Came in with a history of syncope and collapse and fall she had mild scalp hematoma CT head was negative. Echocardiogram 55 percent ejection fraction MRI brain negative D-dimer is normal carotid ultrasound negative. Vital signs are stable patient being discharged home to continue all her home meds and follow up with the primary Dr. 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 at [place]: Continue Desmopressin tablets Hypertension Morbid obesity UTI D-dimer normal CT head negative MRI brain negative Echo normal with 55 percent ejection fraction Carotid ultrasound negative Discharge Disposition: Home Discharge Instruct/Medications Diet: Cardiac 2g Na,low cholest Activity: Light activity Follow Up/Referral: Follow up with your primary Dr Medications: None 35 (Time Taken for discharge summary 35 minutes) Discharge Statement: "Patient was advised to return to the ER or call 911 if any headaches, dizziness, shortness of breath, chest pain, abdominal pain, bleeding, fevers, or worsening of medical condition. Patient was counseled about treatment plan, medications, possible side effects, patientverbalized understanding. All questions were answered to the best of my ability. 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
[2024-08-23 12:52] VITALS: BP 107/71; PULSE 78; RESP 17; TEMP 98.2; O2SAT 96
[2024-08-23 14:14] VITALS: BP 110/72; PULSE 78; RESP 18; TEMP 36.8; O2SAT 96
== END 2024-08-23 15:35 | disposition home or self-care (01) | DRG 424 ==
LOC: EDBD 09:46 → ER 09:46 → OVERFLOW 15:15 → WEST WING 21:15 → TELE-WESTW 08-22 01:19
PROVIDERS: ADMIT Registered Nurse General Practice; ATTEND Internal Medicine
DX: E23.7 Disorder of pituitary gland, unspecified (principal); D49.7 Neoplasm of unspecified behavior of endocrine glands and other parts of nervous system; E66.01 Morbid (severe) obesity due to excess calories; E86.0 Dehydration; I10 Essential (primary) hypertension; E23.2 Diabetes insipidus; N39.0 Urinary tract infection, site not specified; M54.2 Cervicalgia; S01.01XA Laceration without foreign body of scalp, initial encounter; X58.XXXA Exposure to other specified factors, initial encounter; Z90.49 Acquired absence of other specified parts of digestive tract; Y93.89 Activity, other specified; Y92.89 Other specified places as the place of occurrence of the external cause; Y99.8 Other external cause status; Z68.41 Body mass index [BMI] 40.0-44.9, adult
CPT/HCPCS: 36415; 70450; 70553; 80048; 80053; 81001; 82962; 84484; 85025; 85379; 93005; 93306; 93886; 99291; G0378